=== PATIENT | female | born 1985 | race Hispanic/Latino ===

== ENCOUNTER 2018-12-28 08:26 | Observation (INO) | payer OTHER ==
[2018-12-27 11:03] LABS: BASOPHILS % 0.4 % (0.0-1.0); EOSINOPHILS # (AUTO) 0.1 (0.0-0.4); EOSINOPHILS % 0.8 % (0.0-6.0); HEMATOCRIT 42.2 % (34.2-44.1); HEMOGLOBIN 13.7 g/dL (12.0-16.0); LYMPHOCYTES # (AUTO) 1.7 (1.0-3.2); LYMPHOCYTES % 21.7 % (18.0-39.1); MEAN CORPUSCULAR HEMOGLOBIN 30.4 pg (28-32); MEAN CORPUSCULAR HGB CONC 32.5 g/dL (31-35); MEAN CORPUSCULAR VOLUME 93.8 fL (81-99); MONOCYTES # (AUTO) 0.4 (0.2-0.8); MONOCYTES % 5.4 % (4.4-11.3); NEUTROPHILS # (AUTO) 5.6 (2.1-6.9); NEUTROPHILS % 71.4 % (38.7-80.0); PLATELET COUNT 199 x10e3/uL (140-360); RED CELL DISTRIBUTION WIDTH 12.8 % (11.7-14.4)
[2018-12-27 11:18] LABS: INR 0.9; PROTHROMBIN TIME 12.6 seconds (11.9-14.5)
[2018-12-27 11:19] LABS: PARTIAL THROMBOPLASTIN TIME 32.6 seconds (23.8-35.5)
[2018-12-27 11:20] LABS: BLOOD UREA NITROGEN 11 mg/dL (7-26); BUN/CREATININE RATIO 15 (6-25); CALCIUM 9.4 mg/dL (8.4-10.2); CARBON DIOXIDE 25 mmol/L (22-29); CHLORIDE 105 mmol/L (98-107); CREATININE, SERUM 0.72 mg/dL (0.57-1.11); EST GLOMERULAR FILTRATION RATE > 60 ML/MIN (60-); GLUCOSE 90 mg/dL (74-118); SODIUM 138 mmol/L (136-145)
--- NOTE | 2018-12-27 11:37 | Diagnostic Imaging Report ---
Exam: Chest radiograph Clinical History: Preoperative clearance Findings: The cardiomediastinal silhouette and lungs are normal. The regional skeleton and soft tissue are unremarkable. There is no evidence of pleural effusion or pneumothorax. Impression: No radiographic evidence of acute cardiopulmonary disease. Signed by: Dr. Ernie Espitia MD on 12/27/2018 11:34 AM
[2018-12-28] VITALS (7 sets, daily range): BP systolic 111–122; BP diastolic 64–74
[~2018-12-28 08:26] MED LIST: ACETAMINOPHEN 1000 MG/100 ML 100 ML IV ONE; IBUPROFEN 800MG/ 250ML 250 ML IV ONE; IBUPROFEN400 MG PO; LIDOCAINE HCL (LTA) 4 ML SOLN ONE
--- OUTSIDE RECORDS SUMMARY | 2018-12-28 08:36 | XMS REPORT | Encounter Summary ---
Author Organization Unknown Address [address] [place] [address] Phone [phone] Reason for Visit Medical Complaint Instructions 1. Influenza due to Influenza virus, type B rapid flu (A+B) benzonatate 200 mg capsule fluticasone propionate 50 mcg/actuation nasal spray,suspension oseltamivir 75 mg capsule 2. Body mass index 30+ - obesity body mass index: care instructions learning about healthy weight 3. On examination - pulse rate tachycardia 4. On examination - fever Discussion Note: None recorded. Plan of Care Patient Instructions Your Care Instructions Influenza (flu) is an infection in the lungs and breathing passages. It is caused by the influenza virus. There are different strains, or types, of the flu virus from year to year. Unlike the common cold, the flu comes on suddenly and the symptoms, such as a cough, congestion, fever, chills, fatigue, aches, and pains, are more severe. These symptoms may last up to 10 days. Although the flu can make you feel very sick, it usually doesn't cause serious health problems. Home treatment is usually all you need for flu symptoms. But your doctor may prescribe antiviral medicine to prevent other health problems, such as pneumonia, from developing. Older people and those who have a long-term health condition, such as lung disease, are most at risk for having pneumonia or other health problems. Follow-up care is a crowe part of your treatment and safety. Be sure to make and go to all appointments, and call your doctor if you are having problems. It's also a good idea to know your test results and keep a list of the medicines you take. How can you care for yourself at home? Get plenty of rest. Drink plenty of fluids, enough so that your urine is light yellow or clear like water. If you have kidney, heart, or liver disease and have to limit fluids, talk with your doctor before you increase the amount of fluids you drink. Take an jgfb-ayv-ncyaelz pain medicine if needed, such as acetaminophen (Tylenol), ibuprofen (Advil, Motrin), or naproxen (Aleve), to relieve fever, headache, and muscle aches. Read and follow all instructions on the label. No one younger than 20 should take aspirin. It has been linked to Nain syndrome, a serious illness. Do not smoke. Smoking can make the flu worse. If you need help quitting, talk to your doctor about stop-smoking programs and medicines. These can increase your chances of quitting for good. Breathe moist air from a hot shower or from a sink filled with hot water to help clear a stuffy nose. Before you use cough and cold medicines, check the label. These medicines may not be safe for young children or for people with certain health problems. If the skin around your nose and lips becomes sore, put some petroleum jelly on the area. To ease coughing: Drink fluids to soothe a scratchy throat. Suck on cough drops or plain hard candy. Take an bjiw-iyx-dysyact cough medicine that contains dextromethorphan to help you get some sleep. Read and follow all instructions on the label. Raise your head at night with an extra pillow. This may help you rest if coughing keeps you awake. Take any prescribed medicine exactly as directed. Call your doctor if you think you are having a problem with your medicine. To avoid spreading the flu Wash your hands regularly, and keep your hands away from your face. Stay home from school, work, and other public places until you are feeling better and your fever has been gone for at least 24 hours. The fever needs to have gone away on its own without the help of medicine. Ask people living with you to talk to their doctors about preventing the flu. They may get antiviral medicine to keep from getting the flu from you. To prevent the flu in the future, get a flu vaccine every fall. Encourage people living with you to get the vaccine. Cover your mouth when you cough or sneeze. When should you call for help? Call 911 anytime you think you may need emergency care. For example, call if: You have severe trouble breathing. Call your doctor now or seek immediate medical care if: You have new or worse trouble breathing. You seem to be getting much sicker. You feel very sleepy or confused. You have a new or higher fever. You get a new rash. Watch closely for changes in your health, and be sure to contact your doctor if: You begin to get better and then get worse. You are not getting better after 1 week. Reminders Provider Appointments None recorded. Lab Rapid Flu (A+B) 09/10/2018 [facility] Referral None recorded. Procedures None recorded. Surgeries None recorded. Imaging None recorded. Medications Name Start Date benzonatate 200 mg capsule Take 1 capsule 3 times a day by oral route for 10 days. fluticasone propionate 50 mcg/actuation nasal spray,suspension [place] 1 spray every day by intranasal route for 30 days. oseltamivir 75 mg capsule Take 1 capsule twice a day by oral route for 5 days. Medications Administered None recorded. Vitals Height Weight BMI Blood Pressure 5 ft 6 in 186 lbs 30 kg/m2 116/74 mm[Hg] Lab Results Date Name Specimen Result Interpretation Description Value Range Status Address Rapid Flu (A+B) Influenza a negative [facility]: [address] [place] [address] Influenza B positive [facility]: [address] [place] [address] Allergies Code Code System Name Reaction Severity Status Onset NKDA Problems No Known Problems Procedures None recorded. Vaccine List None recorded. Social History Smoking Status Never Smoker Past Encounters 09/10/2018 Influenza Due to Influenza Virus, Type B; Body Mass Index 30+ - Obesity; On Examination - Pulse Rate Tachycardia; On Examination - Fever Tayo Li [facility]: [address] [place] [address], Ph. History of Present Illness Skwxu-Dbzppzfypz-Zunkmfc Reported By: Patient HPI: Location: head/sinuses, chest. Quality: nasal/sinus congestion, dry cough. Duration: 2days. Severity: moderate. Onset/Timing: sudden. Context: no sick contacts, no foreign travel, non-smoker. Associated Symptoms: no sputum production, no shortness of breath, no wheezing, no change in number of pillows needed to sleep at night, no sweats, no significant weight gain, no significant weight loss, no sore throat, no vomiting, no diarrhea, no rash, no nausea, no fever, fatigue, morning cough, fever, muscle aches, headache Note:33 YO female with body aches, cough, congestion, runny nose, sore throat due to cough and PND, headache x 2 days Review of Systems:ROS as noted in the HPI Review of Systems Basic Reported By: Patient Notes: 33 YO female with body aches, cough, congestion, runny nose, sore throat due to cough and PND, headache x 2 days Physical Exam Adult Basic, Adult Female Complete Reported By: Patient Constitutional: General Appearance: obese. Level of Distress: acutely ill. Ambulation: ambulating normally Psychiatric: Mental Status: active and alert. Orientation: to time, to place, to person Qcr-Orov-Goqgn-Throat: Ears: no lesions on external ear, no outer ear tenderness, EACs clear, TMs clear. Hearing: no hearing loss. Nose: no lesions on external nose, nares patent, no septal deviation, nasal passages clear, no sinus tenderness, no nasal discharge. Lips, Teeth, and Gums: no mouth or lip ulcers, no bleeding gums, normal dentition. Oropharynx: moist mucous membranes, no erythema, no exudates, tonsils not enlarged Lungs: Respiratory effort: no dyspnea, no tachypnea, no use of accessory muscles, no intercostal retractions. Auscultation: breath sounds normal Cardiovascular: Heart Auscultation: RRR, no murmurs Notes: 33 YO female with body aches, cough, congestion, runny nose, sore throat due to cough and PND, headache x 2 days
--- OUTSIDE RECORDS SUMMARY | 2018-12-28 08:36 | XMS REPORT | Encounter Summary ---
Author Organization Unknown Address [address] [place] [address] Phone [phone] Reason for Visit Medical Complaint Instructions 1. Seasonal allergy seasonal allergies: care instructions levocetirizine 5 mg tablet 2. Allergic cough benzonatate 100 mg capsule prednisone 10 mg tablets in a dose pack Discussion Note Pt is in NAD; Verbalizes understanding of all instructions with no questions at this time. Plan of Care Patient Instructions Take fluticasone over the counter as needed for congestion. [place] one spray in each nostril twice a day. Take a warm, steamy shower, blow your nose thereafter, and spray in each nostril. Tilt your head up for about 10 seconds and breath through your mouth. Do not sniff or snort the medication in or else the medication will go to your throat and not be absorbed appropriately. Take levocetirizine for al lergy like symptoms like runny nose, sneezing and watery eyes. Take steroid taper as directed and with food to avoid heartburn. Take benzonatate for cough as directed. Take medications as prescribed and follow up with a PCP within 2-3 if symptoms worsen as discussed. Reminders Provider Appointments None recorded. Lab None recorded. Referral None recorded. Procedures None recorded. Surgeries None recorded. Imaging None recorded. Medications Name Start Date benzonatate 100 mg capsule Take 1 capsule 3 times a day by oral route as needed. levocetirizine 5 mg tablet Take 1 tablet every day by oral route as needed. Take at bedtime. prednisone 10 mg tablets in a dose pack TAKE PO DIRECTED Medications Administered None recorded. Vitals Height Weight BMI Blood Pressure 5 ft 6 in 185 lbs 29.9 kg/m2 116/80 mm[Hg] Lab Results None recorded. Allergies Code Code System Name Reaction Severity Status Onset NKDA Problems None recorded. Procedures None recorded. Vaccine List None recorded. Social History Smoking Status Never Smoker Past Encounters 03/18/2017 Seasonal Allergy; Allergic Cough Ev Wolfe, [facility]: [address] [place] [address], Ph. History of Present Illness Gawyi-Mlkqsdrhts-Yxmabkc Reported By: Patient HPI: Location: head/sinuses, chest. Quality: dry cough. Duration: 3days. Severity: moderate. Onset/Timing: gradual. Context: no sick contacts, no foreign travel, non-smoker, allergies. Associated Symptoms: no sputum production, no shortness of breath, no wheezing, no change in number of pillows needed to sleep at night, no sweats, no significant weight gain, no significant weight loss, no morning cough, no sore throat, no vomiting, no diarrhea, no rash, no nausea, no fever, no muscle aches, no headache; rhinorrhea, post nasal drip, hoarseness, moderate persistent dry cough Review of Systems:ROS as noted in the HPI Review of Systems Basic Reported By: Patient Physical Exam Adult Basic, 14-21 Yr Male, Adult Female Complete, Immunization Reported By: Patient Constitutional: General Appearance: healthy-appearing, well-nourished, well-developed. Level of Distress: NAD. Ambulation: ambulating normally Psychiatric: Mental Status: active and alert. Orientation: to time, to place, to person Uhw-Ndnb-Ejltr-Throat: Ears: no lesions on external ear, no outer ear tenderness, EACs clear, TMs clear. Hearing: no hearing loss. Nose: no lesions on external nose, nares patent, no septal deviation, nasal passages clear, no sinus tenderness, nasal discharge--rhinorrhea, post nasal drip; pale and edematous nasal turbinates bilaterally. Lips, Teeth, and Gums: no mouth or lip ulcers, no bleeding gums, normal dentition. Oropharynx: moist mucous membranes, no erythema, no exudates, tonsils not enlarged Neck: Lymph Nodes: no cervical LAD Lungs: Respiratory effort: no dyspnea, no tachypnea, no use of accessory muscles, no intercostal retractions. Auscultation: breath sounds normal Cardiovascular: Heart Auscultation: RRR, no murmurs Neurologic: Gait and Station: normal gait, normal station
--- OUTSIDE RECORDS SUMMARY | 2018-12-28 08:36 | XMS REPORT | Encounter Summary ---
Author Organization Unknown Address [address] [place] [address] Phone [phone] Reason for Visit Medical Complaint Instructions 1. Dysuria painful urination (dysuria): care instructions urinalysis, dipstick Bactrim DS 800 mg-160 mg tablet culture, urine Discussion Note: None recorded. Plan of Care Patient Instructions take antibiotics as prescribed. increase fluids. otc tylenol or ibuprofen prn for pain. will contact patient when results of culture are finalized. follow up pcp Reminders Provider Appointments None recorded. Lab Urinalysis, Dipstick 08/29/2016 [facility] Culture, Urine 08/29/2016 [facility] Referral None recorded. Procedures None recorded. Surgeries None recorded. Imaging None recorded. Medications Name Start Date Bactrim DS 800 mg-160 mg tablet Take 1 tablet every 12 hours by oral route for 5 days. Medications Administered None recorded. Vitals Height Weight BMI Blood Pressure 5 ft 6 in 185 lbs 29.9 120/80 Lab Results Date Name Specimen Result Interpretation Description Value Range Status Address Urinalysis, Dipstick Color : Yellow [facility]: [address] [place] [address] Clarity : Cloudy [facility]: [address] [place] [address] Leukocytes : Large [facility]: [address] [place] [address] Nitrites : Negative [facility]: [address] [place] [address] Urobilinogen : Normal [facility]: [address] [place] [address] Protein : > 2000 [facility]: [address] [place] [address] Ph : 5.0 [facility]: [address] [place] [address] Blood : Large [facility]: [address] [place] [address] Specific [place] : 1.020 [facility]: [address] [place] [address] Ketones : Trace [facility]: [address] [place] [address] Bilirubin : Negative [facility]: [address] [place] [address] Glucose Negative [facility]: [address] [place] [address] Allergies Code Code System Name Reaction Severity Onset NKDA Problems None recorded. Procedures None recorded. Vaccine List None recorded. Social History Smoking Status Never Smoker Past Encounters 08/29/2016 Dysuria Isra Strickland, [facility]: [address] [facility], [place] [address], Ph. History of Present Illness Kyfwwe-VKU-Rroifyw Reported By: Patient HPI: Location: urethra. Quality: pressure. Severity: mild. Duration: constant. Context: wipes anterior to posterior, voids after intercourse, history of kidney stones. Modifying factors nothing makes it worse. Associated Symptoms: no fever/chills, no flank pain, no jaundice, no blood in the urine, no vaginal discharge, no blisters on genitals, no rash on genitals, no muscle aches, no headache, pain during urination, burning sensation during urination, urgency, hesitancy, urinary frequency Review of Systems:ROS as noted in the HPI Review of Systems Basic Reported By: Patient Physical Exam Adult Basic, Adult Female Complete Reported By: Patient Constitutional: General Appearance: healthy-appearing, well-nourished, well-developed. Level of Distress: NAD. Ambulation: ambulating normally Psychiatric: Mental Status: active and alert Neck: Lymph Nodes: no supraclavicular LAD Lungs: Respiratory effort: no dyspnea, no tachypnea, no use of accessory muscles, no intercostal retractions. Auscultation: breath sounds normal Cardiovascular: Heart Auscultation: RRR, no murmurs Abdomen: Inspection and Palpation: soft, non-distended, no tenderness, no guarding, no rebound tenderness, no masses, no CVA tenderness
--- OUTSIDE RECORDS SUMMARY | 2018-12-28 08:36 | XMS REPORT ---
Author Author [facility] Address Unknown Phone Unavailable Care Team Providers Care [employer] Instrument Repairer Name Role Phone JULIAN LUGO Unavailable Unavailable Problems This patient has no known problems. Allergies, Adverse Reactions, Alerts This patient has no known allergies or adverse reactions. Medications This patient has no known medications. Results Test Description Test Time Test Comments Text Results Atomic Results Result Comments CHEST 2 VIEWS 2018-12-27 11:33:00 [place] [address] Patient Name: ALYSA NICHOLS MR #: [id number] : 1985 Age/Sex: 33/F Req #: [id number] Adm Physician: Ordered by: JULIAN LUGO MD Report #: [id number] Location: OR Room/Bed: Procedure: [id number] DX/CHEST 2 VIEWS Exam Date: 12/27/18 Exam Time: 1045 REPORT STATUS: Signed Exam: Chest radiograph Clinical History: Preoperative clearance Findings: The cardiomediastinal silhouette and lungs are normal. The regional skeleton and soft tissue are unremarkable. There is no evidence of pleural effusion or pneumothorax. Impression: No radiographic evidence of acute cardiopulmonary disease. Signed by: Dr. Ernie Montana MD on 12/27/2018 11:34 AM Dictated By: VIN MONTANA MD 1134 Transcribed By: FRED on 12/27/18 1134 COPY TO: JULIAN LUGO MD
--- OUTSIDE RECORDS SUMMARY | 2018-12-28 08:36 | XMS REPORT | Continuity of Care Document ---
Author Author [facility] Address Unknown Phone Unavailable Care Team Providers Care Room Worker Name Role Phone [employer] Unavailable Unavailable Problems Problem Status Onset Date Classification Date Reported Comments Source On examination - fever 09/10/2018 Diagnosis 09/10/2018 [facility] On examination - pulse rate tachycardia 09/10/2018 Diagnosis 09/10/2018 [facility] Body mass index 30+ - obesity 09/10/2018 Diagnosis 09/10/2018 [facility] Influenza due to Influenza virus, type B 09/10/2018 Diagnosis 09/10/2018 [facility] Allergic cough 05/10/2017 Diagnosis 05/10/2017 [facility] Seasonal allergic rhinitis 05/10/2017 Diagnosis 05/10/2017 [facility] Throat symptom 05/10/2017 Diagnosis 05/10/2017 [facility] Seasonal allergy 03/18/2017 Diagnosis 03/19/2017 [facility] Dysuria 08/29/2016 Diagnosis 08/29/2016 [facility] Medications Medication Details Route Status Patient Instructions Ordering Provider Order Date Source benzonatate 100 MG Oral Capsule benzonatate 100 mg capsule Take 1 capsule 3 times a day by oral route as needed. Active [facility] levocetirizine dihydrochloride 5 MG Oral Tablet levocetirizine 5 mg tablet Take 1 tablet every day by oral route as needed. Take at bedtime. Active [facility] prednisone 10 mg tablets in a dose pack prednisone 10 mg tablets in a dose pack TAKE PO DIRECTED Active [facility] Brompheniramine Maleate 0.4 MG/ML / Dextromethorphan Hydrobromide 2 MG/ML / Pseudoephedrine Hydrochloride 6 MG/ML Oral Solution [Bromfed DM] Bromfed DM 2 mg-30 mg-10 mg/5 mL syrup Take 10 mL every 4-6 hours by oral route as needed for 6 days. Active [facility] montelukast 10 MG Oral Tablet montelukast 10 mg tablet Take 1 tablet every day by oral route at bedtime for 30 days. Active [facility] benzonatate 200 MG Oral Capsule benzonatate 200 mg capsule Take 1 capsule 3 times a day by oral route for 10 days. Active [facility] Fluticasone propionate 0.05 MG/ACTUAT Metered Dose Nasal [place] fluticasone propionate 50 mcg/actuation nasal spray,suspension [place] 1 spray every day by intranasal route for 30 days. Active [facility] Oseltamivir 75 MG Oral Capsule oseltamivir 75 mg capsule Take 1 capsule twice a day by oral route for 5 days. Active [facility] Sulfamethoxazole 800 MG / Trimethoprim 160 MG Oral Tablet [Bactrim] Bactrim DS 800 mg-160 mg tablet Take 1 tablet every 12 hours by oral route for 5 days. Active [facility] Allergies, Adverse Reactions, Alerts No Known Medication Allergies Immunizations No Data Provided for This Section Results Order Name Results Value Reference Range Date Interpretation Comments Source Influenza A negative 09/10/2018 [facility] Influenza B positive 09/10/2018 [facility] Urinalysis macro (dipstick) panel - Urine COLOR : Yellow 08/29/2016 [facility] Urinalysis macro (dipstick) panel - Urine CLARITY : Cloudy 08/29/2016 [facility] Urinalysis macro (dipstick) panel - Urine LEUKOCYTES : Large 08/29/2016 [facility] Urinalysis macro (dipstick) panel - Urine NITRITES : Negative 08/29/2016 [facility] Urinalysis macro (dipstick) panel - Urine UROBILINOGEN : Normal 08/29/2016 [facility] Urinalysis macro (dipstick) panel - Urine PROTEIN : > 2000 08/29/2016 [facility] Urinalysis macro (dipstick) panel - Urine pH : 5.0 08/29/2016 [facility] Urinalysis macro (dipstick) panel - Urine BLOOD : Large 08/29/2016 [facility] Urinalysis macro (dipstick) panel - Urine SPECIFIC GRAVITY : 1.020 08/29/2016 [facility] Urinalysis macro (dipstick) panel - Urine KETONES : Trace 08/29/2016 [facility] Urinalysis macro (dipstick) panel - Urine BILIRUBIN : Negative 08/29/2016 [facility] Urinalysis macro (dipstick) panel - Urine GLUCOSE Negative 08/29/2016 [facility] Pathology Reports No Data Provided for This Section Diagnostic Reports No Data Provided for This Section Consultation Notes No Data Provided for This Section Discharge Summaries No Data Provided for This Section History and Physicals No Data Provided for This Section Vital Signs Vital Sign Value Date Comments Source Diastolic (mm Hg) 74 09/10/2018 [facility] Height 66 09/10/2018 [facility] Systolic (mm Hg) 116 09/10/2018 [facility] Weight 186 09/10/2018 [facility] Diastolic (mm Hg) 84 05/10/2017 [facility] Height 66 05/10/2017 [facility] Systolic (mm Hg) 120 05/10/2017 [facility] Weight 185 05/10/2017 [facility] Diastolic (mm Hg) 80 03/18/2017 [facility] Height 66 03/18/2017 [facility] Systolic (mm Hg) 116 03/18/2017 [facility] Weight 185 03/18/2017 [facility] Diastolic (mm Hg) 80 08/29/2016 [facility] Height 66 08/29/2016 [facility] Systolic (mm Hg) 120 08/29/2016 [facility] Weight 185 08/29/2016 [facility] Encounters Location Location Details Encounter Type Encounter Number Reason For Visit Attending Provider ADM Date DC Date Status Source [place] - [facility] - [id number] NATALIE WilsonP-C: [address] [place] [address], Ph. [phone] [id number] Isra Strickland 08/29/2016 [facility] [place] - [facility] - [id number] PatelP-C: [address] [place] [address], Ph. [id number] Ev Wolfe 03/18/2017 [facility] [place] - [facility] - [id number] Wolfe [employer] [facility]: [address] [place] [address], Ph. [id number] Ev Wolfe 05/10/2017 [facility] [place] - [facility] - [id number] Li, [facility] [address] [place] [address], Ph. [id number] Tayo Li 09/10/2018 [facility] Procedures No Data Provided for This Section Assessment and Plan No Data Provided for This Section Plan of Care No Data Provided for This Section Social History Social History Date Source Smoking Status Never Smoker 08/29/2016 [facility] Family History No Data Provided for This Section Advance Directives No Data Provided for This Section Functional Status No Data Provided for This Section
--- OUTSIDE RECORDS SUMMARY | 2018-12-28 08:36 | XMS REPORT | Encounter Summary ---
Author Organization Unknown Address [address] [place] [id number] Phone [phone] Reason for Visit Medical Complaint Instructions 1. Seasonal allergic rhinitis seasonal allergies: care instructions montelukast 10 mg tablet 2. Allergic cough Bromfed DM 2 mg-30 mg-10 mg/5 mL syrup 3. Throat symptom Discussion Note Pt is in NAD; Verbalizes understanding of all instructions with no questions at this time. Plan of Care Patient Instructions Take fluticasone over the counter as needed for congestion. Beryl one spray in each nostril twice a day. Take a warm, steamy shower, blow your nose thereafter, and spray in each nostril. Tilt your head up for about 10 seconds and breath through your mouth. Do not sniff or snort the medication in or else the medication will go to your throat and not be absorbed appropriately. Take over the counter Xyzal for allergy like symptoms like runny nose, sneezing and watery eyes. Start Bromfed DM for cough as directed. Take montelukast as directed every day. If you need refills on this medication please contact your PCP. Take medications as prescribed and follow up with a PCP or asset specialist within 2-3 if symptoms worsen as discussed. Reminders Provider Appointments None recorded. Lab None recorded. Referral None recorded. Procedures None recorded. Surgeries None recorded. Imaging None recorded. Medications Name Start Date Bromfed DM 2 mg-30 mg-10 mg/5 mL syrup Take 10 mL every 4-6 hours by oral route as needed for 6 days. montelukast 10 mg tablet Take 1 tablet every day by oral route at bedtime for 30 days. Medications Administered None recorded. Vitals Height Weight BMI Blood Pressure 5 ft 6 in 185 lbs 29.9 kg/m2 120/84 mm[Hg] Lab Results None recorded. Allergies Code Code System Name Reaction Severity Status Onset NKDA Problems None recorded. Procedures None recorded. Vaccine List None recorded. Social History Smoking Status Never Smoker Past Encounters 05/10/2017 Seasonal Allergic Rhinitis; Allergic Cough; Throat Symptom Ev Wolfe [facility]: [address] [facility] [place], [place] [address], Ph. History of Present Illness [id number]-Asdutrh Reported By: Patient HPI: Location: head/sinuses, throat, chest. Quality: sore throat, nasal/sinus congestion, dry cough. Duration: ; x 1-2 weeks. Severity: moderate. Onset/Timing: gradual. Context: no sick contacts, no foreign travel, non-smoker, allergies. Modifying factors: OTC medication. Associated Symptoms: no sputum production, no shortness of breath, no wheezing, no change in number of pillows needed to sleep at nigh t, no sweats, no significant weight gain, no significant weight loss, no morning cough, no sore throat, no vomiting, no diarrhea, no rash, no nausea, no fever, no muscle aches, no headache; rhinorrhea, post nasal drip, itchy throat, chest congestion and dry cough Review of Systems:ROS as noted in the HPI Review of Systems Basic Reported By: Patient Physical Exam Adult Basic, Adult Female Complete Reported By: Patient Constitutional: General Appearance: healthy-appearing, well-nourished, well-developed. Level of Distress: NAD. Ambulation: ambulating normally Psychiatric: Mental Status: active and alert. Orientation: to time, to place, to person Hsj-Xeyz-Bjiit-Throat: Ears: no lesions on external ear, no outer ear tenderness, EACs clear, TMs clear. Hearing: no hearing loss. Nose: no lesions on external nose, nares patent, no septal deviation, nasal passages clear, no sinus tenderness, nasal discharge--rhinorrhea, post nasal drip. Lips, Teeth, and Gums: no mouth or [...]
[2018-12-28] MEDS ORDERED: CEFAZOLIN SOD 1 GM/NS 50ML 100 ML IV ONE (09:05)
[2018-12-28] MEDS ORDERED: BUPIVACAINE 0.5%/EPI 30 ML SDV INJ ONE (09:41)
[2018-12-28] MEDS ORDERED: BACITRACIN 50,000 UNIT VIAL ONE (09:42)
[2018-12-28] MEDS ORDERED: THROMBIN-JMI W/DIL SPRAY PUMP ACTUATOR 20000 UNIT KIT ONE (09:42)
[2018-12-28] MEDS ORDERED: THROMBIN FOR SOLN 5,000 UNIT VIAL ONE (09:43)
[2018-12-28] MEDS ORDERED: ACETAMINOPHEN 325 MG TAB PO PRN (11:45)
[2018-12-28] MEDS ORDERED: HYDROMORPHONE 2MG/ML 2 MG/ML ML IV PRN (11:45)
[2018-12-28] MEDS ORDERED: PROMETHAZINE HCL (IM) 25 MG/ML VIAL IM PRN (11:45)
[2018-12-28] MEDS ORDERED: ZOLPIDEM TARTRATE 5 MG TAB PO PRN (11:45)
[2018-12-28] MEDS ORDERED: MAGNESIUM/ALUMINUM/SIMETHICONE 30 ML UDC PO PRN (11:45)
[2018-12-28] MEDS ORDERED: CARISOPRODOL 350 MG TAB PO PRN (11:45)
[2018-12-28] MEDS ORDERED: MORPHINE SULFATE 5 MG/ML VIAL IM PRN (11:45)
[2018-12-28] MEDS: ONDANSETRON HCL INJ 2MG/ML 2ML 2 MG/ML VIAL IV PRN ×2 (12:01→16:04)
[2018-12-28] MEDS ORDERED: FENTANYL CITRATE/PF 100MCG/2 ML INJ ONE ×2 (12:23→18:58)
[2018-12-28] MEDS ORDERED: MEPERIDINE HCL INJ 25 MG/ML VIAL ONE (12:37)
--- NOTE | 2018-12-28 12:50 | Operative Report ---
DATE OF PROCEDURE: 12/28/2018 SURGEON: Henrry Ocampo MD PREOPERATIVE DIAGNOSIS: Right L5-S1 disk herniation with radiculopathy, M51.17. POSTOPERATIVE DIAGNOSIS: Right L5-S1 disk herniation with radiculopathy, M51.17. PROCEDURES: Right L5-S1 laminotomy, medial facetectomy, and microsurgical diskectomy. ANESTHESIA: General. INDICATIONS: The patient is a 33-year-old woman, who presents with a right L5-S1 disk herniation with an intractable S1 radiculopathy and was taken to the operating room for microsurgical diskectomy. PROCEDURE IN DETAIL: After induction of general anesthesia, the patient was placed on the operating table in prone position on the David frame. Lumbar region was prepped and draped in sterile fashion. A preoperative x-ray was obtained. A midline incision was created. Lumbar fascia was on the right of midline and a subperiosteal dissection was carried out to expose the right-sided L5 and S1 lamina and the medial aspect of the facet joint. The second x-ray confirmed correct localization. The operating microscope was brought in. A high-speed drill equipped with celio bur was used to drill the inferior aspect of the lamina of L5 and medial rim of the L5-S1 facet joint and superior rim of the lamina of S1. The ligamentum flavum was resected. The dural sac and S1 nerve root came into view. The root was clearly elevated by the underlying disk herniation. First, the shoulder and then the axilla of the nerve root were inspected. The herniated disk material was located in the region of the axilla. The epidural veins in the axilla were carefully bipolar coagulated and divided with micro scissors. The herniated disk material was delivered out with a #4 Lillian instrument and then grasped with a micropituitary rongeur and removed. This achieved immediate decompression of the S1 nerve root, which could then be retracted medially. Worked and resumed over the shoulder of the S1 nerve root. The annulus of the disk was incised with a #11 blade and the loose contents of the L5-S1 disk were evacuated with curettes and pituitary rongeurs. A ball probe was then passed into the ventral epidural space and used to extruded the subligamentous portion of the disk herniation, which was then retrieved with a pituitary and removed. Excellent decompression of the S1 nerve root was thus achieved. The wound was irrigated with bacitracin solution. Hemostasis was secured. The piece of fat that had been harvested from the subcutaneous space was placed over the dura. The lumbar fascia was closed with 0 Vicryl suture. Subcutaneous layer was closed with 2-0 Vicryl sutures. The skin was closed with 3-0 Monocryl sutures in subcuticular fashion. Steri-Strips and dressing applied. The patient was awakened, extubated, and taken to postanesthesia care unit in stable condition. No intraoperative complications were encountered. Estimated blood loss was 10 mL. Henrry Ocampo MD PP/GARRISON /[id number]
--- NOTE | 2018-12-28 12:54 | Diagnostic Imaging Report ---
Exam: Lumbar spine 1 view Comparison: None available Clinical History: Lumbar stenosis Findings: Single crosstable lateral view of the lumbar spine was obtained intraoperatively. Assuming the patient has 5 nonrib-bearing vertebrae and the last unfused segment is designated as L5, a metallic localizer is seen projecting inferior to the L5 spinous process. Signed by: Dr. Ernie Espitia MD on 12/28/2018 12:50 PM
--- NOTE | 2018-12-28 12:55 | Diagnostic Imaging Report ---
Exam: Lumbar spine 1 view Comparison: None available Clinical History: Lumbar stenosis Findings: Single crosstable lateral view of the lumbar spine was obtained intraoperatively. Assuming the patient has 5 nonrib-bearing vertebrae and the last unfused segment is designated as L5, 2 metallic localizers are seen projecting over the L5 vertebra. Signed by: Dr. Ernie Espitia MD on 12/28/2018 12:51 PM
--- OUTSIDE RECORDS SUMMARY | 2018-12-28 13:01 | XMS REPORT | Continuity of Care Document ---
Author Author [employer] Organization [employer] Address Unknown Phone Unavailable Care Team Providers Care Environmental Attorney Name Role Phone [employer] Unavailable Unavailable Problems Problem Status [...] Fluticasone propionate 0.05 MG/ACTUAT Metered Dose Nasal [place] fluticasone propionate 50 mcg/actuation nasal spray,suspension [place] 1 spray every day by intranasal route [...] Date Status Source [place] - [facility] - [id number] NATALIE WilsonP-C: [address] [place] [address], Ph. [id number] Isra Strickland 08/29/2016 [facility] [place] - [facility] - [id number] PatelP-C: [address] [place] [address], Ph. [id number] Ev Wolfe 03/18/2017 [facility] [place] - [facility] - [id number] Wolfe [employer]-C: [address] [place] [address], Ph. [id number] Ev Wolfe 05/10/2017 [facility] [place] - [facility] - [id number] Li, [facility] [address] [place] [address], Ph. [id number] Tayo Li 09/10/2018 [facility] Procedures No Data [...]
--- NOTE | 2018-12-28 13:21 | NUR ---
received pt from PACU via stretcher, patient AAox4. resp even and unlabored. pain 2/10 to back. oriented to room and use of call light. call light placed within reach. boyfrienlulu Hurtado at bedside.
[2018-12-28] MEDS ORDERED: MORPHINE SULFATE INJ 4 MG/ML INJ 1ML IM PRN (13:30)
[2018-12-28] MEDS: CEFAZOLIN SOD 1 GM/NS 50ML 50 ML IV SCH ×2 (14:17→21:40)
[2018-12-28] MEDS: LACTATED RINGER'S 1,000 ML IV SCH ×2 (14:17→21:40)
[2018-12-28] MEDS: OXYCODONE/ACETAMINOPHEN 5-325 1 EACH TABLET PO PRN ×2 (16:04→20:47)
[2018-12-28] MEDS ORDERED: ONDANSETRON HCL INJ 2MG/ML 2ML 2 MG/ML VIAL ONE (18:45)
[2018-12-28] MEDS ORDERED: DEXAMETHASONE SOD PHOS INJ 4 MG/ML VIAL ONE (18:45)
[2018-12-28] MEDS ORDERED: ROCURONIUM BROMIDE 10 MG/ML 5ML VIAL ONE (18:45)
[2018-12-28] MEDS ORDERED: NEOSTIGMINE 5 MG/5ML SYR ONE (18:45)
[2018-12-28] MEDS ORDERED: LIDOCAINE HCL 2% JELLY 5 ML TUBE ONE (18:45)
[2018-12-28] MEDS ORDERED: LIDOCAINE HCL 2% LOCAL INJ 5 ML SDV VIAL INJ ONE (18:45)
[2018-12-28] MEDS ORDERED: GLYCOPYRROLATE INJ 1MG/ 5 ML SYR ONE (18:45)
[2018-12-28] MEDS ORDERED: PROPOFOL IV EMULSION 10 MG/ML 20 ML VIAL ONE (18:45)
[2018-12-28] MEDS ORDERED: SEVOFLURANE INHAL SOLN 250 ML PEN BTL ONE (18:45)
[2018-12-28] MEDS ORDERED: MIDAZOLAM HCL 2 MG/2 ML VIAL ONE (18:58)
[2018-12-29] MEDS: OXYCODONE/ACETAMINOPHEN 5-325 1 EACH TABLET PO PRN (02:08)
[2018-12-29 03:50] VITALS: BP 123/69
[2018-12-29] MEDS: LACTATED RINGER'S 1,000 ML IV SCH (05:57)
[2018-12-29] MEDS: CEFAZOLIN SOD 1 GM/NS 50ML 50 ML IV SCH (06:22)
--- NOTE | 2018-12-29 07:07 | NUR ---
Report given to oncoming nurse,walking round done.
[2018-12-29 08:00] VITALS: BP 111/80
--- NOTE | 2018-12-29 10:15 | NUR ---
Patient discharged home verbalized understanding of d/c instructions.
== END 2018-12-29 10:15 | disposition home or self-care (01) ==
LOC: OR 08:26 → PACU V 11:45 → IMCU 13:07
PROVIDERS: ADMIT Neurological Surgery; ATTEND Neurological Surgery
DX: M51.17 Intervertebral disc disorders with radiculopathy, lumbosacral region (principal); Z79.1 Long term (current) use of non-steroidal anti-inflammatories (NSAID)
CPT/HCPCS: 36415; 63030; 69990; 71046; 72020; 80048; 81025; 85025; 85610; 85730; 86850; 86900; 88304; 93005; G0378 ×2; J0131; J0690 ×2; J1100; J1170; J2001 ×2; J2175; J2250; J2270; J2405 ×2; J2704; J3010; J3490; J7121 ×2